=== PATIENT | female | born 1990 ===

== ENCOUNTER 2016-08-19 08:11 | Inpatient (IN) | payer MEDICAID ==
[2016-08-19] MEDS ORDERED: OXYTOCIN/RINGERS LACTATE 1,000 ML IV PRN (09:14)
[2016-08-19] MEDS ORDERED: TERBUTALINE SULFATE 1 MG/ML VIAL IV PRN (09:14)
[2016-08-19] MEDS ORDERED: EPSOM SALT 454 GM TP PRN (09:14)
[2016-08-19] MEDS ORDERED: OLIVE OIL 118 ML BTL MISC PRN (09:14)
[2016-08-19] MEDS ORDERED: LR 1,000 ML IV PRN (09:14)
[2016-08-19] MEDS ORDERED: LIDOCAINE 1% 30 ML SDV SC PRN (09:14)
--- NOTE | 2016-08-19 09:45 | GHP ---
[f rep st] PREOP HISTORY AND PHYSICAL DATE OF ADMISSION: 08/19/2016 ADMITTING DIAGNOSIS: This 25-year-old, 2, para 1-0-0-1 at 38 weeks 5 days presents complain ing of strong contractions and bloody show since 7 a.m. this morning. HISTORY OF PRESENT COMPLAINT: Patient receives care at the [facility]. Estimated due date is August 28, 2016, per L = 10. Patient states contractions started at 5:30 this morning, became strong around 7 a.m. Denies leaking fluid. States had bloody show like a period that has continued since 7 a.m. Positive movement. PAST MEDICAL HISTORY: Reports history of a UTI this , treated. SURGICAL HISTORY: Denies. MEDICATIONS: vitamin, Zofran p.r.n. ALLERGIES: NKDA. SUPPORT MERCHANDISER HISTORY: Denies history of abnormal Paps. Positive history of HPV warts 9 years ago. Denies b reakouts this . SOCIAL HISTORY: . Denies alcohol, tobacco, or drug use. Bengali speaking. FAMILY HISTORY: Noncontributory. OB HISTORY: 2011: at full term, 6-pound 11-ounce female. No complications. LABS: O positive. Antibody negative. HIV negative. Hepatitis B negative. Syphilis nega tive. Rubella immune. Gonorrhea, chlamydia negative. Elevated 1-hour GTT 163. Three-hour GTT wit hin normal limits. GBS is negative per patient. PHYSICAL EXAMINATION: VITAL SIGNS: Stable. GENERAL APPEARANCE: Alert, oriented x3. HEART: Rate regular. LUNGS: Clear to auscultation bilaterally. ABDOMEN: Gravid and nontender. VAGINAL EXAM : 3/100/-2. Cephalic presentation with bloody show. Category 2 heart tracing. heart tones 140, moderate variability, positive accelerations. One variable B-cell to 100 bpm with sponta neous return to baseline. Contractions irregular, every 4-7 minutes. ASSESSMENT: This 25-year-old, 2, para 1-0-0-1, at 38 weeks 5 days, presents in early labor. PLAN: 1. Admit to L and D. 2. Admit orders. 3. Pain management as requested. 4. Continuous maternal/ monitoring. 5. Expectant management. /[id number]/MODL
[2016-08-19 11:17] LABS: % IMMATURE GRANULYOCYTES 0.9 % (0.0-1.1); ABSOLUTE IMMATURE GRANULOCYTES 0.07 10^3/uL (0.00-0.10); ADD DIFF? NO; ADD MORPH? NO; ADD SCAN? NO; ATYPICAL LYMPHOCYTE FLAG 0 (0-99); FRAGMENT RBC FLAG 0 (0-99); HEMATOCRIT 35.5 % (38.0-47.0); HEMOGLOBIN 12.7 g/dL (12.6-16.3); LEFT SHIFT FLG 10 (0-99); LIPEMIA HEMOLYSIS FLAG 90 (0-99); MEAN CELL HEMOGLOBIN CONCENTR. 35.8 g/dL (32.4-36.7); MEAN CELL VOLUME 94.9 fL (81.5-99.8); MEAN PLATELET VOLUME 10.9 fL (8.7-11.7); PLATELET CLUMPS FLAG 0 (0-99); PLATELET COUNT 159 10^3/uL (150-400); RED BLOOD CELL COUNT 3.74 10^6/uL (4.18-5.33); RED CELL DISTRIBUTION WIDTH 13.4 % (11.5-15.2)
[2016-08-19] MEDS ORDERED: OLIVE OIL 118 ML BTL ONE (11:19)
[2016-08-19] MEDS ORDERED: LIDOCAINE 1% 30 ML SDV ONE (11:19)
[2016-08-19] MEDS ORDERED: AMMONIA AROMATIC 1 EACH AMP IH ONE (11:19)
[2016-08-19] MEDS ORDERED: MISOPROSTOL 200 MCG TAB ONE (11:20)
[2016-08-19] MEDS ORDERED: OXYTOCIN 10 UNIT/ML VIAL ONE (11:20)
[2016-08-19] MEDS ORDERED: TERBUTALINE SULFATE 1 MG/ML VIAL ONE (11:20)
[2016-08-19] MEDS ORDERED: MISOPROSTOL 200 MCG TAB PR ONE (11:30)
[2016-08-19] MEDS: IBUPROFEN 600 MG TAB PO PRN ×2 (12:00→19:29)
[2016-08-19] MEDS ORDERED: ACETAMINOPHEN 325 MG TAB PO PRN (12:16)
[2016-08-19] MEDS ORDERED: SIMETHICONE 80 MG TAB CHEW PO PRN (12:16)
[2016-08-19] MEDS ORDERED: HYDROCORTISONE 0.5% CREAM TP PRN (12:16)
[2016-08-19] MEDS ORDERED: HYDROCODONE/APAP 5/325 TAB PO PRN (12:16)
[2016-08-19] MEDS ORDERED: OXYTOCIN 10 UNIT/ML VIAL IM ONE (12:19)
--- NOTE | 2016-08-19 12:24 | OBPROC ---
- Labor and Delivery Onset of Contractions Date: 08/19/16 Onset of Contractions Time: 07:00 Onset of Contractions Type: Spontaneous Rupture of Membranes Date: 08/19/16 Rupture of Membranes Time: 11:25 Rupture of Membranes Type: Spontaneous Amniotic Fluid Color: Meconium Stained-Light Dilation Complete Time: 11:20 Delivery Type: Spontaneous Placenta Delivery Date: 08/19/16 Placenta Delivery Time: 11:30 Episiotomy/Laceration: 2nd Degree Repair: 3-0 (x1) EBL: 400 Complications: None (10mU pit IM, 800mcg cytotec DE given) - Medications Labor Augmentation/Induction Meds Used: None - Info A Delivery Date: 08/19/16 Delivery Time: 11:26 Sex of : Female Score (1 Min): 9 Score (5 Min): 9
[2016-08-19] MEDS ORDERED: MISOPROSTOL 200 MCG TAB PR SCH (12:30)
[2016-08-19] MEDS: DOCUSATE SODIUM 100 MG CAP PO PRN (21:30)
[2016-08-20] MEDS: IBUPROFEN 600 MG TAB PO PRN ×2 (03:51→12:38)
[2016-08-20] MEDS ORDERED: IRON POLYSAC/IRON HEME 28 MG TAB PO SCH (09:00)
[2016-08-20 09:12] VITALS: BP 87/57; PULSE 82; RESP 16; TEMP 98; O2SAT 95
--- NOTE | 2016-08-20 09:29 | SOAPPROG ---
SOAP Progress Note Assessment/Plan: Assessment: PPD 1 s/p anemia Plan: D/C home, iron BID 08/20/16 09:25 Subjective: Pt doing well. Tired from night. Baby latching hourly through noc. Mod cramps. urinating fine. Bld has decreased. Desires D/C Objective: Vital Signs Temp Pulse Resp BP Pulse Ox 36.6 C 82 16 87/57 L 95 08/20/16 08:00 08/20/16 08:00 08/20/16 08:00 08/20/16 08:00 08/20/16 08:00 Laboratory Results 08/20/16 05:20 08/19/16 08/20/16 08/21/16 05:59 05:59 05:59 Output Total 400 Balance -400 Physical Exam - Physical Exam General Appearance: WD/WN Abdomen: non-tender, soft, other (FF at umb) Pelvic Exam: vaginal bleeding (normal lochia) Extremities: non-tender, pedal edema (mild) Neuro/Psych: normal mood/affect ICD10 Worksheet Patient Problems: Problems Problem Status Onset (spontaneous vaginal delivery) Acute
[2016-08-20] MEDS: DOCUSATE SODIUM 100 MG CAP PO PRN (12:38)
== END 2016-08-20 16:00 | disposition home or self-care (01) | DRG 775 ==
LOC: FLD 08:11 → OBSVTOIN 09:14 → FOB 13:47
PROVIDERS: ADMIT Advanced Practice Midwife; ATTEND Obstetrics & Gynecology
DX: O70.1 Second degree perineal laceration during delivery (principal); O77.0 Labor and delivery complicated by meconium in amniotic fluid; Z3A.38 38 weeks gestation of pregnancy; Z37.0 Single live birth
CPT/HCPCS: J2590; J3105